=== PATIENT | male | born 1985 | race Caucasian/White ===

== ENCOUNTER → 2021-04-19 | Outpatient (CLI) | payer BC ==
[~2021-04-19] MED LIST: CEPH-38 PO; HYDR1TAB PO; SERT50TA
--- NOTE | 2021-04-19 11:23 | Diagnostic Imaging Report ---
CT ABDOMEN/PELVIS WO TECHNIQUE: Unenhanced CT imaging of the abdomen and pelvis was performed. 2-D reformats are created and submitted for interpretation. Automatic exposure controls were utilized to optimize patient dose. INDICATION: Hematuria. Right flank pain COMPARISON: None available. FINDINGS: Evaluation of the abdominal viscera is mildly limited without contrast. Lower chest: The lung bases are clear. No pericardial or pleural effusion. Peritoneum: No free intraperitoneal air or fluid. Liver and biliary system: Unenhanced liver is normal. The gallbladder is normal. No biliary duct dilation. Spleen and Pancreas: Spleen is normal. Unenhanced pancreas is grossly normal. Adrenals: Normal. tract: Mild right hydronephrosis and proximal hydroureter due to a 4 mm stone in the mid right ureter. No left renal or ureteral stones. Urinary bladder is normal. Prostate is not enlarged. GI tract: Stomach is partially filled with fluid and there is no wall thickening. No bowel obstruction. No pericolonic inflammatory changes. Appendix is not seen. Vasculature and Lymph nodes: Normal caliber aorta. No abdominal or pelvic lymphadenopathy. Musculoskeletal: No concerning osseous lesion. IMPRESSION: Mild right hydronephrosis and hydroureter due to a 4 mm obstructing stone in the mid right ureter. Dictated by: Dictated on workstation # [id number]
== END ==
LOC: RAD 10:00
PROVIDERS: ATTEND Physician Assistant
DX: N13.30 Unspecified hydronephrosis (principal); N20.1 Calculus of ureter; E78.2 Mixed hyperlipidemia; F33.9 Major depressive disorder, recurrent, unspecified; M54.89 Other dorsalgia
CPT/HCPCS: 74176

== ENCOUNTER → 2021-06-19 | Outpatient (CLI) | payer BC ==
[~2021-06-19] MED LIST changes: +HYDROCODONE; +KETO10TA PO; +KRILL OIL; +LIPITOR; +NITR-65 PO; +ONDA4TAB11 PO; +PHEN-640 PO; +SERT-413 PO; -SERT50TA; +SERT50TA PO; +TMSL.4C PO
--- NOTE | 2021-06-19 16:03 | Diagnostic Imaging Report ---
INDICATION: Left ureteral lithiasis KUB 2:44 PM Bowel gas pattern is normal. There are no pathologic masses or calcifications. IMPRESSION: Unremarkable abdomen Dictated by: Dictated on workstation # [id number]
== END ==
LOC: RAD 14:32
PROVIDERS: ATTEND Urology
DX: N20.1 Calculus of ureter (principal)
CPT/HCPCS: 74018

== ENCOUNTER 2021-06-20 05:37 | Outpatient (CLI) | payer BC ==
[~2021-06-20] VITALS: Ht 172.7 cm; Wt 86.4 kg
[~2021-06-20 05:37] MED LIST changes: -HYDROCODONE; -KETO10TA PO; -KRILL OIL; -LIPITOR; -NITR-65 PO; -ONDA4TAB11 PO; -PHEN-640 PO; -SERT-413 PO; -TMSL.4C PO
[2021-06-20] MEDS ORDERED: KRILL OIL (11:52)
[2021-06-20] MEDS ORDERED: LIPITOR (11:52)
[2021-06-20] MEDS ORDERED: TMSL.4C PO (11:52)
[2021-06-20] MEDS ORDERED: ONDA4TAB11 PO (11:52)
[2021-06-20] MEDS ORDERED: HYDROCODONE (11:52)
[2021-06-21] MEDS ORDERED: SERT-413 PO (08:49)
[2021-06-21] MEDS ORDERED: PHEN-640 PO (10:00)
[2021-06-21] MEDS ORDERED: KETO10TA PO (10:00)
[2021-06-21] MEDS ORDERED: NITR-65 PO (10:00)
== END 2021-06-20 11:53 ==
LOC: PREOP 05:37
PROVIDERS: ATTEND Urology
DX: Z01.818 Encounter for other preprocedural examination (principal)

== ENCOUNTER 2021-06-21 07:00 | Day surgery (SDC) | payer BC ==
[2021-06-21] VITALS (10 sets, daily range): BP systolic 96–131; BP diastolic 50–87
[~2021-06-21] VITALS: Ht 172.7 cm; Wt 86.4 kg
[~2021-06-21 07:00] MED LIST changes: +HYDROCODONE; +KRILL OIL; +LIPITOR; +ONDA4TAB11 PO; +TMSL.4C PO
--- NOTE | 2021-06-21 07:12 | Progress Note-Pre Operative ---
Pre-Operative Progress Note H&P Reviewed The H&P was reviewed, patient examined and no changes noted. Date Seen by Provider: Jun 21, 2021 Time Seen by Provider: 07:12 Date H&P Reviewed: Jun 21, 2021 Time H&P Reviewed: 07:12 Pre-Operative Diagnosis: RT URETERAL STONE SATISH ROWLEY MD Jun 21, 2021 07:12
[2021-06-21] MEDS ORDERED: cefTRIAXone 1 GM PRE-MIX 50 ML IV ONE (07:15)
--- NOTE | 2021-06-21 07:45 | Diagnostic Imaging Report ---
EXAMINATION: Abdomen 1 view HISTORY: Right ureteral stone COMPARISON: 06/19/2021 FINDINGS: There are no calcifications projecting over the kidneys or ureters. No dilated bowel or free air. IMPRESSION: 1. No calcifications are seen projecting over the kidneys or ureters. Dictated by: Dictated on workstation # [id number]
[2021-06-21] MEDS: LACTATED RINGERS 1,000 ML IV PRN ×2 (07:50→09:25)
[2021-06-21] MEDS ORDERED: MIDAZOLAM 2 MG/2 ML (VERSED) VIAL ONE (08:22)
[2021-06-21] MEDS ORDERED: fentaNYL INJ 100 MCG/2 ML AMP ONE (08:22)
[2021-06-21] MEDS ORDERED: SERT-413 PO (08:49)
[2021-06-21] MEDS ORDERED: proPOfol 200 MG/20 ML (DIPRIVAN) VIAL IV ONE (09:22)
[2021-06-21] MEDS ORDERED: ONDANSETRON 4 MG/2 ML (SDV) Z0FRAN ONE (09:22)
[2021-06-21] MEDS ORDERED: SEVOFLURANE (ULTANE) 15 ML INHAL SOLN ONE (09:22)
[2021-06-21] MEDS ORDERED: LIDOCAINE PF 2% 5 ML (XYLOCAINE) VIAL ONE (09:22)
[2021-06-21] MEDS ORDERED: GLYCOPYRROLATE 0.2 MG/ML (ROBINUL) 2 ML VIAL ONE (09:28)
--- NOTE | 2021-06-21 09:39 | Progress Note-Post Operative ---
Post-Operative Progess Note Surgeon (s)/Nuclear Equipment Design Engineer (s) Surgeon SATISH ROWLEY MD Nuclear Equipment Design Engineer: NONE Pre-Operative Diagnosis RT URETERAL STONE Post-Operative Diagnosis SAME AND MEATAL STENOSIS Procedure & Operative Findings Date of Procedure 06/21/21 Procedure Performed/Findings UD, CYSTOSCOPY, RT RETROGRADE UROGRAM, RT URETEROSCOPY AND INSERTION OF RT STENT Anesthesia Type GENERAL Estimated Blood Loss Estimated blood loss (mL): NONE Specimens/Packing Specimens Removed NONE Packing: NONE SATISH ROWLEY MD Jun 21, 2021 09:39
--- NOTE | 2021-06-21 09:43 | Discharge Inst-Urology ---
Discharge Inst-Urology Reconcile Patient Problems Problems Reviewed?: Yes Final Diagnosis RT URETERAL STONE Patient Instructions/Follow Up Plan/Assessment/Instructions Please make appointment to been seen in office in 1 week. Strain all urines, save any stone passed and bring to office appointment Increase oral fluids especially caffeinated ones. Diet and Activity as tolerated. If questions or concerns contact your physician Or seek help at emergency department. SATISH ROWLEY MD Jun 21, 2021 09:43
[2021-06-21] MEDS ORDERED: NITR-65 PO (10:00)
[2021-06-21] MEDS ORDERED: PHEN-640 PO (10:00)
[2021-06-21] MEDS ORDERED: KETO10TA PO (10:00)
[2021-06-21] MEDS ORDERED: PHENAZOPYRIDINE 100 MG (PYRIDIUM) TABLET PO NR (11:15)
--- NOTE | 2021-06-21 19:34 | OPERATIVE REPORT ---
DATE OF SERVICE: 06/21/2021 PREOPERATIVE DIAGNOSIS: Right distal ureteral stone. POSTOPERATIVE DIAGNOSES: 1. Right distal ureteral stone. 2. Meatal stenosis. OPERATION PERFORMED: Urethral dilatation, cystoscopy, right retrograde urogram, right ureteroscopy and insertion of right stent. SURGEON: Satish Rowley MD ANESTHESIA: General. COMPLICATIONS: None. DESCRIPTION OF PROCEDURE: Under satisfactory general anesthesia, the patient in lithotomy position, genitalia were prepped and draped in the usual sterile fashion. Noted a meatal stenosis, I did not admit the scope, it was dilated with Shantal sound easily to #28 to accommodate the cystoscope. Anterior urethra was normal. The prostate was nonobstructing. The bladder neck was opened. Using the foroblique lens, I dilated the right ureteral orifice intramural portion. I felt that I had disengaged the stone that was apparently impacted in the distal ureter. I removed the cystoscope, inserted 6.9-St Helenian semirigid ureteroscope into the ureter; however, I could not bypass an area of spasm with reactionary effect of the stone being impacted there for at least two months that we know of. I removed the ureteroscope, inserted the cystoscope into the cone-tipped ureteral catheter, I injected contrast and indeed there was a spasm and was dilatation proximal to it at the area where I could not go with the ureteroscope and we could see the stone floating in higher position in the distal ureter just below the pelvic brim. I went ahead and inserted a 6-St Helenian 26 cm double-J stent, guided fluoroscopically all the way to the right renal pelvis, removed the guidewire, the stent was seen draining nicely proximally fluoroscopically and distally endoscopically. Bladder was evacuated and the cystoscope was removed. PLAN: We will see if the patient is able to pass the stone now that disimpacted and very passable size along the stent. If not, hopefully the stent will take care of the spasm, straighten up things for us to bring the patient back in two weeks, try again with the ureteroscope. If not and we see the stone well, we can go ahead and do ESWL. This was fully explained to the patient preoperatively and to his mother postoperatively. Job ID: [id number] DocumentID: [id number] Dictated Date: 06/21/2021 09:46:28 Punch Machine Hand Date: 06/21/2021 14:10:35 Dictated By: SATISH ROWLEY MD
== END 2021-06-21 12:14 | disposition home or self-care (01) ==
LOC: SDC 07:00
PROVIDERS: ATTEND Urology
DX: N20.1 Calculus of ureter (principal); N35.911 Unspecified urethral stricture, male, meatal; F41.9 Anxiety disorder, unspecified; F32.A Depression, unspecified
CPT/HCPCS: 52332; 52351; 74018; 76000; 87081; C2625

== ENCOUNTER 2021-06-29 05:38 | Outpatient (CLI) | payer BC ==
[~2021-06-29] VITALS: Ht 172.7 cm; Wt 86.4 kg
[~2021-06-29 05:38] MED LIST changes: +KETO10TA PO; +NITR-65 PO; +PHEN-640 PO; +SERT-413 PO
== END 2021-06-29 10:43 | disposition home or self-care (01) ==
LOC: PREOP 05:38
PROVIDERS: ATTEND Urology
DX: Z01.818 Encounter for other preprocedural examination (principal)

== ENCOUNTER 2021-07-04 06:30 | Day surgery (SDC) | payer BC ==
[~2021-07-04] VITALS: Ht 172.7 cm; Wt 86.4 kg
[2021-07-04] VITALS (10 sets, daily range): BP systolic 97–119; BP diastolic 62–90
--- NOTE | 2021-07-04 07:14 | Diagnostic Imaging Report ---
INDICATION: Stent placement. Right-sided double-J stent has been placed and projects in expected alignment. Ureteral calculus at the L4 level present on earlier CT is not readily apparent at this exam. Some pelvic calcifications not clearly changed from prior and largely if not entirely phleboliths. The bowel gas pattern unremarkable. IMPRESSION: Double-J stent on the right placed in expected alignment. The mid right ureteral stone cannot be clearly visualized but could be obscured by the overlying the lower lumbar spine. No adverse development from correlative exams. Dictated by: Dictated on workstation # [id number]
[2021-07-04] MEDS ORDERED: cefTRIAXone 1 GM PRE-MIX 50 ML IV ONE (07:30)
[2021-07-04] MEDS ORDERED: LACTATED RINGERS 1,000 ML IV PRN (07:30)
--- NOTE | 2021-07-04 07:50 | Progress Note-Pre Operative ---
Pre-Operative Progress Note H&P Reviewed The H&P was reviewed, patient examined and no changes noted. Date Seen by Provider: Jul 04, 2021 Time Seen by Provider: 07:49 Date H&P Reviewed: Jul 04, 2021 Time H&P Reviewed: 07:49 Pre-Operative Diagnosis: RT DISTAL URETERAL STONE SATISH ROWLEY MD Jul 04, 2021 07:49
[2021-07-04] MEDS ORDERED: MIDAZOLAM 2 MG/2 ML (VERSED) VIAL ONE (08:47)
[2021-07-04] MEDS ORDERED: LIDOCAINE PF 2% 5 ML (XYLOCAINE) VIAL ONE (08:47)
[2021-07-04] MEDS ORDERED: fentaNYL INJ 100 MCG/2 ML AMP ONE (08:47)
[2021-07-04] MEDS ORDERED: proPOfol 200 MG/20 ML (DIPRIVAN) VIAL IV ONE (08:47)
[2021-07-04] MEDS ORDERED: ONDANSETRON 4 MG/2 ML (SDV) Z0FRAN ONE (08:47)
--- NOTE | 2021-07-04 09:09 | Progress Note-Post Operative ---
Post-Operative Progess Note Surgeon (s)/Materials Associate (s) Surgeon SATISH ROWLEY MD Materials Associate: NONE Pre-Operative Diagnosis RT DISTAL URETERAL STONE Post-Operative Diagnosis SAME Procedure & Operative Findings Date of Procedure 07/04/21 Procedure Performed/Findings CYSTOSCOPY WITH REMOVAL OF RT STENT, RT URETEROSCOPY WITH STONE BASKET Anesthesia Type GENERAL Estimated Blood Loss Estimated blood loss (mL): NONE Specimens/Packing Specimens Removed STENT AND STONE Packing: NONE SATISH ROWLEY MD Jul 04, 2021 09:09
--- NOTE | 2021-07-04 09:10 | Discharge Inst-Urology ---
Discharge Inst-Urology Reconcile Patient Problems Problems Reviewed?: Yes Final Diagnosis RT DISTAL URETERAL STONE Patient Instructions/Follow Up Plan/Assessment/Instructions Please make appointment to been seen in office in 2 weeks. No KUB's Stone for analysis post seen by patient, mother has it Increase oral fluids for 48 hours and then as needed. Diet and Activity as tolerated. If questions or concerns contact your physician Or seek help at emergency department. SATISH ROWLEY MD Jul 04, 2021 09:10
[2021-07-04] MEDS ORDERED: KETOROLAC 30 MG/ML VIAL ONE (09:15)
[2021-07-04] MEDS ORDERED: FUROSEMIDE 40 MG/4 ML INJ (LASIX) ONE (09:15)
--- NOTE | 2021-07-04 09:43 | Anesthesia-General Post-Op ---
General Patient Condition Mental Status/LOC: Same as Preop Cardiovascular: Satisfactory Nausea/Vomiting: Absent Respiratory: Satisfactory Pain: Controlled Complications: Absent Post Op Complications Complications None Follow Up Care/Instructions Patient Instructions None needed. Anesthesia/Patient Condition Patient Condition Patient is doing well, no complaints, stable vital signs, no apparent adverse anesthesia problems. No complications reported per nursing. JULIANA QUARLES CRNA Jul 04, 2021 09:43
[2021-07-04] MEDS ORDERED: ONDANSETRON 4 MG/2 ML (SDV) Z0FRAN IVP PRN (09:45)
[2021-07-04] MEDS ORDERED: fentaNYL INJ 100 MCG/2 ML AMP IVP ONE (09:45)
[2021-07-04] MEDS ORDERED: MEPERIDINE (DEMEROL) INJ 50 MG/ML IVP ONE (09:45)
[2021-07-04] MEDS ORDERED: NITR-68 PO (10:28)
[2021-07-04] MEDS ORDERED: KETO10TA PO (10:28)
[2021-07-04] MEDS ORDERED: PHEN-640 PO (10:28)
--- NOTE | 2021-07-04 11:01 | OPERATIVE REPORT ---
DATE OF SERVICE: 07/04/2021 PREOPERATIVE DIAGNOSIS: Right distal ureteral stone. POSTOPERATIVE DIAGNOSIS: Right distal ureteral stone. OPERATION PERFORMED: Cystoscopy, removal of right ureteral stent and right ureteroscopy with stone basket. SURGEON: Krishan Rowley MD. ANESTHESIA: General. COMPLICATIONS: None. DESCRIPTION OF PROCEDURE: Under satisfactory general anesthesia, the patient in lithotomy position, genitalia were prepped and draped in the usual sterile fashion. Cystoscope was introduced under vision. The distal end of the right ureteral stent was visualized, grasped with a grasping forceps and removed in toto, went back with the cystoscope and dilated the right ureteral orifice intramural portion to accommodate a 6.9 Kinyarwanda semirigid ureteroscope, visualized the stone, it was floating and amenable for basket. So, I passed 3-Kinyarwanda Vora basket, engaged the stone and removed it completely. I went back with the ureteroscope to confirm the integrity of the ureter and no further fragments of stones and it was negative. The patient tolerated the procedure and anesthesia well and was sent to recovery room in stable condition. PLAN: We will see him back in 2 weeks. We will work him up for stone prevention. This was explained to him before surgery and to the mother after surgery. CC: Dr. Miller - requested, unable to deliver. Job ID: [id number] DocumentID: [id number] Dictated Date: 07/04/2021 09:43:46 Pharmacy Clinical Coordinator Date: 07/04/2021 11:00:15 Dictated By: KRISHAN ROWLEY MD
--- NOTE | 2021-07-06 13:21 | Anesthesia-General Post-Op ---
General Significant Intra-Op Events Notes late entry from 06-21-21 at 1030 Patient Condition Mental Status/LOC: Same as Preop Cardiovascular: Satisfactory Nausea/Vomiting: Absent Respiratory: Satisfactory Pain: Controlled Complications: Absent Post Op Complications Complications None Follow Up Care/Instructions Patient Instructions None needed. Anesthesia/Patient Condition Patient Condition Patient is doing well, no complaints, stable vital signs, no apparent adverse anesthesia problems. No complications reported per nursing. EAMON ISABEL CRNA Jul 06, 2021 13:21
== END 2021-07-04 11:30 | disposition home or self-care (01) ==
LOC: SDC 06:30
PROVIDERS: ATTEND Urology
DX: N20.1 Calculus of ureter (principal); F32.A Depression, unspecified; F41.9 Anxiety disorder, unspecified
CPT/HCPCS: 74018; 76000; 87081

== ENCOUNTER → 2022-01-18 | Outpatient (CLI) | payer BC ==
[~2022-01-18] MED LIST changes: +NITR-68 PO
--- NOTE | 2022-01-18 18:08 | Diagnostic Imaging Report ---
INDICATION: Renal stones. COMPARISON: 07/04/2021. TECHNIQUE: Single radiograph of the abdomen dated 01/18/2022. FINDINGS: Interval removal of previously noted right-sided ureteral stent. No suspicious calcifications are noted overlying the bilateral renal shadows. No suspicious calcifications along the expected course of the bilateral ureters. Tiny phlebolith within the right lower pelvis is again identified and stable. Nonobstructed bowel gas pattern. No free air. No acute osseous abnormality. IMPRESSION: Interval removal of previously noted right ureteral stent. Otherwise, unremarkable examination. Dictated by: Dictated on workstation # [id number]
== END ==
LOC: RAD 14:25
PROVIDERS: ATTEND Urology
DX: Z46.6 Encounter for fitting and adjustment of urinary device (principal); N20.0 Calculus of kidney
CPT/HCPCS: 74018